=== PATIENT | female | born 1965 | race Caucasian/White ===

== ENCOUNTER 2016-11-28 08:32 | Emergency (ER) | payer BC, OTHER ==
[~2016-11-28] VITALS: Wt 77.2 kg
[2016-11-28] MEDS ORDERED: EPINEPHrine 1 MG INJ IM STA (08:46)
[2016-11-28] MEDS ORDERED: FAMOTIDINE 20 MG INJ IV STA (08:46)
[2016-11-28] MEDS ORDERED: METHYLPREDNISOLONE 125 MG INJ IV STA (08:46)
[2016-11-28] MEDS ORDERED: IPRATROPIUM (NEB) 0.5 MG/2.5 ML AMP HHN ONE (09:00)
[2016-11-28] MEDS ORDERED: ALBUTEROL 0.5% (NEB) 2.5 MG/0.5 ML AMP HHN STA (09:00)
[2016-11-28] MEDS ORDERED: DIPHENHYDRAMINE 50 MG INJ IV ONE (10:00)
[2016-11-28] MEDS ORDERED: PRED20TA PO (10:29)
[2016-11-28] MEDS ORDERED: EPIN0.3P4 INJ (10:29)
[2016-11-28] MEDS ORDERED: hydrOXYzine HCL 25 MG TAB PO ONE (11:00)
--- NOTE | 2016-11-28 11:53 | ERD ---
ER Documentation Chief Complaint Date/Time DATE: 11/28/16 TIME: 11:50 Chief Complaint allergic reaction with redness and stridor after milk . no releif with epi HPI Patient is a 51-year-old female with asthma who presents with allergic reaction. 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 She felt like her throat was closing. She had shortness of breath. She took 2 Benadryl and gave herself her EpiPen. Her primary doctor is Dr. Banegas. ROS All systems reviewed and are negative except as per history of present illness. Medications Home Meds Active Scripts Epinephrine (Epipen 2-[place]) 0.3 Mg/0.3 Ml Pen.injctr, 1 EA INJ ONCE Y for ALLERGIC REACTION, #1 EA Prov:SANDI SOLORIO MD 11/28/16 Prednisone* (Prednisone*) 20 Mg Tab, 60 MG PO DAILY for 4 Days, TAB Prov:SANDI SOLORIO MD 11/28/16 Allergies Allergies: Uncoded Allergies: MILK PRODUCTS (Allergy, Unknown, 11/28/16) PMhx/Soc Medical and Surgical Hx: pt denies Medical Hx, pt denies Surgical Hx Hx Alcohol Use: No Hx Substance Use: No Hx Tobacco Use: No Smoking Status: Never smoker FmHx Family History: No diabetes Physical Exam Vitals Vital Signs Date Time Temp Pulse Resp B/P Pulse Ox O2 Delivery O2 Flow Rate FiO2 11/28/16 09:52 84 19 127/64 98 Nasal Cannula 2.0 11/28/16 09:05 96 22 99 Nasal Cannula 3.0 11/28/16 08:42 98.8 130 20 117/78 88 Physical Exam Const: Moderate distress Head: Atraumatic Eyes: Normal Conjunctiva ENT: Normal External Ears, Nose and Mouth. Neck: Mild stridor over the neck Resp: Wheezing diffusely Cardio: Regular rate and rhythm, no murmurs Abd: Soft, non tender, non distended. Normal bowel sounds Skin: Urticaria Back: No midline or flank tenderness Ext: No cyanosis, or edema Neur: Awake and alert Psych: Normal Mood and Affect Results 24 hrs Current Medications Medications (Trade) Dose Ordered Sig/Mitul Route PRN Reason Start Time Stop Time Status Last Admin Dose Admin Epinephrine (EPINEPHrine) 0.3 mg ONCE STAT IM 11/28/16 08:46 11/28/16 08:47 DC 11/28/16 08:51 Famotidine (Pepcid Iv) 40 mg ONCE STAT IV 11/28/16 08:46 11/28/16 08:47 DC 11/28/16 08:51 Methylprednisolone Sodium Succinate (Solu-Medrol) 125 mg ONCE STAT IV 11/28/16 08:46 11/28/16 08:47 DC 11/28/16 08:51 Albuterol (Proventil 0.5% (Neb)) 5 mg ONCE STAT HHN 11/28/16 09:00 11/28/16 09:01 DC 11/28/16 09:10 Ipratropium [place] (Atrovent 0.02% (Neb)) 0.5 mg ONCE ONCE HHN 11/28/16 09:00 11/28/16 09:01 DC 11/28/16 09:10 Diphenhydramine HCl (Benadryl) 25 mg ONCE ONCE IV 11/28/16 10:00 11/28/16 10:01 DC 11/28/16 09:56 Hydroxyzine HCl (Atarax) 25 mg ONCE ONCE PO 11/28/16 11:00 11/28/16 11:01 DC 11/28/16 10:48 Procedures/MDM Patient is a 51-year-old female who presents with what appears to be acute anaphylaxis. The patient had throat closing and rash. She used her own EpiPen and Benadryl at home. I gave her another dose of epinephrine in the emergency department as well as Solu-Medrol and Pepcid IV. She then received Benadryl IV. She then got Atarax by mouth as she was still having itching. However after receiving the Solu-Medrol, Pepcid, and epi in the ER she felt much better and her throat no longer felt like it was closing. She was given an albuterol treatment and is no longer wheezing and has no stridor at this time. She was watched in the emergency department for a number of hours and has improved. At this point I believe outpatient management is appropriate. She will be discharged with 4 more days of prednisone as well as a refill of her EpiPen. She can return for any worsening symptoms. She should follow-up with her primary doctor within 24-48 hours for reevaluation. She can return sooner for any worsening symptoms. Critical Care: Time: 35 minutes excluding all billable procedures. Treatments/Evaluations: Close monitoring and treatment of unstable vital signs, cardiorespiratory, and neurologic status, while maintaining tight balance of fluid, respiratory, and cardiac interventions. Departure Diagnosis: Primary Impression: Acute anaphylaxis Encounter type: initial encounter Qualified Code: T78.2XXA - Acute anaphylaxis, initial encounter Condition: Fair Patient Instructions: Anaphylaxis, General Referrals: LEIGH ANN BANEGAS MD Additional Instructions: Call your primary care doctor TOMORROW for an appointment during the next 1-2 days.See the doctor sooner or return here if your condition worsens before your appointment time. SANDI SOLORIO MD Nov 28, 2016 11:53
[2016-11-28 12:51] VITALS: BP 143/75; PULSE 82; RESP 19; TEMP 97.8
== END 2016-11-28 12:51 | disposition home or self-care (01) ==
LOC: E/R 08:32
DX: T78.07XA Anaphylactic reaction due to milk and dairy products, initial encounter (principal)
CPT/HCPCS: 94664; 96372; 96374; 96375; 99291; J0171; J1200; J2930